=== PATIENT | male | born 1965 | race Two or more races ===

== ENCOUNTER → 2023-07-09 | Outpatient (CLI) | payer MEDICAID ==
[~2023-07-09] MED LIST: ANGIOMAX 250 MG VIAL IV ONE; BRIM0.159 OP; CARV6.2551 PO; FURO40TA4 PO; LEVO50TA7 PO; LISI20TA56 PO; MIDAZOLAM HCL 2MG/2ML 2ml VIAL (1mg/ml) ONE; OXY10CRT PO; POM; SACU1TAB7 PO; SIL25T PO; SODIUM CHL 0.9% 0 ML ONE; SPIR25TA8 PO; fentaNYL CITRATE 100 MCG/2 ML VL ONE
[2023-07-09 09:55] VITALS: BP 156/96; PULSE 92; RESP 18; O2SAT 93
[2023-07-09 10:06] VITALS: BP 127/79; PULSE 75; RESP 18; O2SAT 93
== END | disposition home or self-care (01) ==
LOC: CHF HDHVI 09:46
PROVIDERS: ATTEND Internal Medicine Cardiovascular Disease
DX: Z01.818 Encounter for other preprocedural examination (principal); I44.4 Left anterior fascicular block; R94.31 Abnormal electrocardiogram [ECG] [EKG]; I49.3 Ventricular premature depolarization; I11.0 Hypertensive heart disease with heart failure; I50.23 Acute on chronic systolic (congestive) heart failure
CPT/HCPCS: 93005; G0463

== ENCOUNTER 2023-07-10 10:03 | Day surgery (SDC) | payer MEDICAID ==
[2023-07-09 11:17] LABS: Basophils # (auto) 0.1 10 ^3/uL (0-0.2); Basophils % (auto) 1.3 % (0.0-2.0); Eosinophils # (auto) 0.2 10 ^3/uL (0-0.8); Eosinophils % (auto) 1.9 % (0.0-7.0); Hematocrit 48.5 % (41.0-53.0); Hemoglobin 16.4 g/dL (13.5-17.5); Lymphocytes # (auto) 1.8 10 ^3/uL (0.4-5.4); Lymphocytes % (auto) 21.7 % (10.0-50.0); Mean Corpuscular Hemoglobin 30.1 pg (28.0-32.0); Mean Corpuscular Hgb Conc. 33.8 g/dL (32.0-36.0); Mean Corpuscular Volume 89.2 fL (80.0-100.0); Monocytes # (auto) 0.7 10 ^3/uL (0-1.3); Monocytes % (auto) 8.2 % (0.0-12.0); Neutrophils # (auto) 5.5 10 ^3/uL (1.6-8.6); Neutrophils % (auto) 66.9 % (37.0-80.0); Nucleated Red Blood Cells % 0.2 %; Red Blood Cells 5.44 10^6/uL (4.5-5.90); Red Cell Distribution Width 14.7 % (11.8-14.3); White Blood Cell 8.1 10^3/uL (4.4-10.8)
[2023-07-09 11:24] LABS: Chloride 109 mmol/L (98-107); Potassium 4.7 mmol/L (3.5-5.1); Sodium 140 mmol/L (136-145)
[2023-07-09 11:25] LABS: Anion Gap 7 (5-15); Carbon Dioxide 24 mmol/L (20-30)
[2023-07-09 11:26] LABS: Calcium 9.5 mg/dL (8.5-10.1)
[2023-07-09 11:30] LABS: BUN/Creatinine Ratio 19.4 (10.0-20.0); Blood Urea Nitrogen 18 mg/dL (9-23); Glucose 99 mg/dL (74-106)
[2023-07-09 11:42] LABS: INR 0.94 (0.9-1.15); Partial Thromboplastin Time 23.3 SEC (24.5-34.5); Prothrombin Time 9.9 sec (9.3-11.8)
[2023-07-10] VITALS (9 sets, daily range): BP systolic 92–134; BP diastolic 56–88; PULSE 68–86; RESP 12–18; TEMP 98; O2SAT 90–95
[~2023-07-10] VITALS: Ht 180.3 cm; Wt 113.4 kg
[~2023-07-10 10:03] MED LIST changes: -ANGIOMAX 250 MG VIAL IV ONE; -MIDAZOLAM HCL 2MG/2ML 2ml VIAL (1mg/ml) ONE; -SODIUM CHL 0.9% 0 ML ONE; -fentaNYL CITRATE 100 MCG/2 ML VL ONE
[2023-07-10] MEDS ORDERED: LIDOCAINE 2%HCL (LOCAL ANESTH.) INJ 20ML MDV ONE (13:11)
[2023-07-10] MEDS ORDERED: IOHEXOL 350 MG/ML 100ML IJ ONE (13:11)
== END 2023-07-10 16:05 | disposition home or self-care (01) ==
LOC: CATH 10:03
PROVIDERS: ATTEND Internal Medicine Cardiovascular Disease
DX: I42.0 Dilated cardiomyopathy (principal); R94.39 Abnormal result of other cardiovascular function study; I11.0 Hypertensive heart disease with heart failure; I50.20 Unspecified systolic (congestive) heart failure; I10 Essential (primary) hypertension; E78.5 Hyperlipidemia, unspecified; Z79.899 Other long term (current) drug therapy
CPT/HCPCS: 36415; 80048; 85025; 85610; 85730; 93458; C1894; J1644; Q9967; 99152; 99153

== ENCOUNTER → 2023-08-13 | Outpatient (CLI) | payer MEDICAID ==
[~2023-08-13] MED LIST changes: +FUROSEMIDE 20 MG/2 ML VIAL ONE; +LATA0.008 OP; -OXY10CRT PO
[2023-08-13 12:25] VITALS: BP 125/73; PULSE 56; RESP 16; O2SAT 96
[2023-08-13 12:32] VITALS: BP 123/63; PULSE 61; RESP 16; O2SAT 96
== END | disposition home or self-care (01) ==
LOC: CHF HDHVI 12:19
PROVIDERS: ATTEND Internal Medicine Cardiovascular Disease
DX: Z01.818 Encounter for other preprocedural examination (principal); I42.9 Cardiomyopathy, unspecified; I25.5 Ischemic cardiomyopathy
CPT/HCPCS: G0463

== ENCOUNTER 2023-08-14 08:03 | Day surgery (SDC) | payer MEDICAID ==
[2023-08-13 13:49] LABS: Basophils # (auto) 0 10 ^3/uL (0-0.2); Basophils % (auto) 0.5 % (0.0-2.0); Eosinophils # (auto) 0.2 10 ^3/uL (0-0.8); Eosinophils % (auto) 2.6 % (0.0-7.0); Hematocrit 47.5 % (41.0-53.0); Hemoglobin 15.7 g/dL (13.5-17.5); Lymphocytes # (auto) 1.6 10 ^3/uL (0.4-5.4); Lymphocytes % (auto) 26.6 % (10.0-50.0); Mean Corpuscular Hemoglobin 29.9 pg (28.0-32.0); Mean Corpuscular Volume 90.5 fL (80.0-100.0); Monocytes # (auto) 0.5 10 ^3/uL (0-1.3); Monocytes % (auto) 8.9 % (0.0-12.0); Neutrophils # (auto) 3.7 10 ^3/uL (1.6-8.6); Neutrophils % (auto) 61.4 % (37.0-80.0); Nucleated Red Blood Cells % 0.4 %; Red Blood Cells 5.25 10^6/uL (4.5-5.90); Red Cell Distribution Width 14.4 % (11.8-14.3); White Blood Cell 6.1 10^3/uL (4.4-10.8)
[2023-08-13 14:04] LABS: Chloride 110 mmol/L (98-107); Sodium 140 mmol/L (136-145)
[2023-08-13 14:05] LABS: Anion Gap 5 (5-15); Carbon Dioxide 25 mmol/L (20-30)
[2023-08-13 14:06] LABS: Calcium 9.2 mg/dL (8.7-10.4)
[2023-08-13 14:10] LABS: Glucose 99 mg/dL (74-106)
[2023-08-13 14:11] LABS: BUN/Creatinine Ratio 14.4 (10.0-20.0); Blood Urea Nitrogen 13 mg/dL (9-23)
[2023-08-13 14:28] LABS: INR 0.95 (0.9-1.15); Partial Thromboplastin Time 28.8 SEC (24.5-34.5); Prothrombin Time 10.2 sec (9.3-11.8)
[~2023-08-14] VITALS: Ht 180.3 cm; Wt 117.9 kg
[~2023-08-14 08:03] MED LIST changes: -FUROSEMIDE 20 MG/2 ML VIAL ONE
[2023-08-14] MEDS ORDERED: VANCOMYCIN 1GM/200ML 200 ML IV ONE ×2 (08:15→10:56)
[2023-08-14] MEDS ORDERED: IOHEXOL 350 MG/ML 100ML IJ ONE (10:53)
[2023-08-14] MEDS ORDERED: LIDOCAINE 2%HCL (LOCAL ANESTH.) INJ 20ML MDV ONE (10:53)
[2023-08-14] MEDS ORDERED: fentaNYL CITRATE 100 MCG/2 ML VL ONE (10:56)
[2023-08-14] MEDS ORDERED: VANCOMYCIN HCL 1000 MG VL ONE (10:56)
[2023-08-14] MEDS ORDERED: MIDAZOLAM HCL 2MG/2ML 2ml VIAL (1mg/ml) ONE (10:56)
[2023-08-14] MEDS ORDERED: HYDROcodone-ACET 5/325MG TAB PO ONE (14:00)
== END 2023-08-14 16:15 | disposition home or self-care (01) ==
LOC: CATH 08:03
PROVIDERS: ATTEND Internal Medicine Cardiovascular Disease
DX: I42.0 Dilated cardiomyopathy (principal); Z87.891 Personal history of nicotine dependence
CPT/HCPCS: 33225; 33249; 36415; 71045; 80048; 85025; 85610; 85730; C1769; C1882; C1893; C1895; C1898; J2250; J3010; J3370; J7030; Q9967; 99152